=== PATIENT | male | born 1960 | race Caucasian/White ===

== ENCOUNTER 2023-06-16 22:25 | Emergency (ER) | payer BC, SELFPAY ==
--- NOTE | ~2023-06-16 | CT_ITS ---
EXAMINATION: CT HEAD WITHOUT CONTRAST CLINICAL INFORMATION: Right arm paresthesias. Headache. COMPARISON: None available. TECHNIQUE: Contiguous axial imaging was performed from the skull base to vertex without intravenous administration of contrast. This CT examination was performed using dose optimization techniques as appropriate, variously including the following: *Automated exposure control *Adjustment of mA and/or kV according to patient size (this includes techniques or standardized protocols for targeted exams where dose is matched to indication/reason for exam; i.e. extremities or head) *Use of iterative reconstruction technique DLP: 717 mGy-cm FINDINGS: The lateral, third and fourth ventricles are normally outlined. The cortical sulci and basal cisterns are normally outlined as well. There is no acute territorial defect, hemorrhage or midline shift. The extra-axial spaces are unremarkable. Calvarium: Intact. Maxillofacial sinuses and mastoids: There is a small inferior left maxillary sinus opacity. Remaining maxillofacial sinuses and mastoids are clear. CT/CT head/brain wo IV con IMPRESSION: No acute intracranial pathology.
[2023-06-16 22:29] VITALS: BP 150/89; PULSE 90; RESP 18; TEMP 36.6; BMI 31.7
--- NOTE | 2023-06-16 22:48 | ECG_ITS ---
Test Reason : WEAKNESS Blood Pressure : / mmHG Vent. Rate : 094 BPM Atrial Rate : 094 BPM P-R Int : 138 ms QRS Dur : 076 ms QT Int : 372 ms P-R-T Axes : 044 018 018 degrees QTc Int : 465 ms Normal sinus rhythm Normal ECG When compared with ECG of 02-JAN-2018 11:35, Vent. rate has increased BY 34 BPM Referred By: Lety King Electronically Signed By:ARCELIA MOTA
[2023-06-16 22:49] VITALS: BP 180/95; PULSE 94; RESP 17; TEMP 36.9; O2SAT 98
[2023-06-16 22:55] LABS: MANUAL DIFF FLAG NO
[2023-06-16 22:57] LABS: Basophils Percent Auto 0.5 % (0-2); Eosinophils Absolute Auto 0.1 X10*3/uL (0.0-0.4); Eosinophils Percent Auto 1.8 % (0-4); Hematocrit 44.5 % (42.0-52.0); Hemoglobin 15.2 g/dl (14.0-18.0); Imm Gran Abs Auto 0.02 X10*3/uL (0.00-0.03); Imm Gran Pct Auto 0.3 % (0.0-0.4); Lymphocytes Absolute Auto 2.4 X10*3/uL (1.2-4.9); Lymphocytes Percent Auto 38.9 % (20-40); Mean Corpuscular HGB Conc 34.2 g/dl (31.0-36.0); Mean Corpuscular Hemoglobin 30.3 pg (27.0-33.0); Mean Corpuscular Volume 88.8 fL (80.0-98.0); Mean Platelet Volume 9.2 fL (9.4-12.4); Monocytes Absolute Auto 0.7 X10*3/uL (0.1-1.2); Monocytes Percent Auto 11.6 % (2-11); Neutrophils Absolute Auto 2.8 x10*3/uL (2.0-8.3); Neutrophils Percent Auto 46.9 % (45-73); Platelet Count 173 X10*3/uL (160-400); Red Blood Count 5.01 X10*6/uL (4.60-5.80); Red Cell Distribution Width 13.3 % (11.0-16.0)
--- NOTE | 2023-06-16 22:57 | ED.HA ---
HPI - Headache General Chief Complaint: Headache Stated Complaint: headache, 'cant think straight' Time Seen by Provider: 06/16/23 22:37 Source: patient and family Mode of arrival: ambulatory Limitations: no limitations History of Present Illness HPI Narrative: Patient comes to the emergency room accompanied by his . Patient states that since approximately 5 hours ago, patient had a left-sided headache, pain behind his left eye, no visual changes. Patient states that he had a bit of numbness in his right arm. No loss of function, no weakness. Patient reports that he does have history of migraine headaches and anxiety. Patient denies nausea vomiting or diarrhea. No URI or UTI symptoms. Denies chest pain or shortness of breath. Related Data Previous Rx's Medication Instructions Recorded sumatriptan succinate 50 mg tablet See Rx Instructions PO .COMPLEX 06/17/23 #12 tabs Allergies Allergy/AdvReac Type Severity Reaction Status Date / Time broccoli Allergy Intermediate NAUSEA & Verified 06/16/23 22:28 VOMITING Review of Systems Review of Systems: Constitutional : No Weight loss, No Fever, No Chills, No Night Sweats, No Fatigue, No Malaise ENT/Mouth : Complaining of pressure behind his left eye accompanied with a migraine headache, no vision changes, No Hearing loss, No Ear Pain, No Nasal Congestion, No Sinus Pain, No Hoarseness, No sore throat, No Rhinorrhea, No Swallowing Difficulty Eyes: No Eye Pain, No Swelling, No Redness, No Foreign Body, No Discharge, No Vision Changes Cardiovascular : No Chest Pain, No SOB, No Dyspnea on Exertion, No Orthopnea, No Edema, No Palpitations Respiratory : No Cough, No Sputum, No Wheezing, No Smoke Exposure, No Dyspnea Gastrointestinal : No Nausea, No Vomiting, No Diarrhea, No Constipation, No abdominal Pain, No Hematochezia, No Melena Genitourinary : no irregular bleeding, No Dysuria, No Urinary Frequency, No Hematuria, No Urinary Incontinence, No Urgency, No Flank Pain, No Urinary Flow Changes, No Hesitancy Musculoskeletal : No joint pain, No Myalgias, No Joint Swelling Skin : No Skin Lesions, No rash Neuro : No Weakness, No Numbness, complaining of paresthesias in the right arm, No Loss of Consciousness, No Dizziness, complaining of left-sided Headache Psych : No Anxiety/Panic, No Depression, No SI/HI/AH/VH, No Social Issues, Heme/Lymph: No Bruising, No Bleeding,No Lymphadenopathy Endocrine : No Polyuria, No Polydipsia, No Temperature Intolerance [facility] Past Medical History Medical History (Updated 06/17/23 @ 03:58 by Lety King MD) Hypertension Migraine Social History Social History Alcohol intake: current Alcohol intake frequency: a few times a week Alcohol type: beer Smoked in Last 30 Days: No Use of substances other than those prescribed or required for medical reasons: No Advance Directives: No Advance Directives Information Provided: No Physical Exam Vital Signs: Vital Signs: Last Vital Signs Temp 98.1 F 06/17/23 01:08 Pulse 90 06/17/23 01:08 Resp 17 06/17/23 01:08 BP 159/90 H 06/17/23 01:08 Pulse Ox 98 06/17/23 01:08 O2 Del Method Room Air 06/17/23 01:08 BMI result Body Mass Index 31.7 Const: Other: Appearance: Alert. Oriented X3. Anxious, seems uncomfortable from the headache Eyes: Pupils equal, round and reactive to light. ENT: Pharynx normal. Neck: Normal inspection. Neck supple. No lymph nodes noted. No crepitus CVS: Normal heart rate and rhythm. Pulses normal. Normal S1 and S2 Respiratory: No respiratory distress. Breath sounds normal. No Wheezing. No rales Abdomen: Soft and nontender. No rigidity. No distention. Skin: Skin warm and dry. Normal skin color. Normal skin turgor. Extremities: No lower extremity edema. No Lacerations. No Rash Neuro: Oriented X 3. No motor deficit. No sensory deficit. Moving all extremities. No slurred speech. CN 2 through 12 grossly intact Psych: calm, cooperative, anxious NIH Stroke Scale Internal: Initial- Upon Arrival Level of Consciousness: Alert Level of Consciousness Questions: Answers both questions correctly Level of Consciousness Commands: Performs both tasks correctly Best Gaze: Normal Visual: No visual loss Facial Palsy: Normal Motor Arm (Right): No drift Motor Arm (Left): No drift Motor Leg (Right): No drift Motor Leg (Left): No drift Limb Ataxia: Absent Sensory: Normal Best Language: No aphasia Dysarthia: Normal Extinction and Inattention: No abnormality Score: 0 Course Course Course Narrative: -patient receiving IV fluids, cocktail of meds for the migraine headache. -patient's NIH score is 0, patient arrived outside of the window of treatment, either way, patient not a candidate for TNK -symptoms mostly likely secondary to a complex migraine headache -labs and CT scan pending Medications Administered Discontinued Medications Generic Name Dose Route Start Last Admin Trade Name Miriam PRN Reason Stop Dose Admin Acetaminophen/Butalbital/Caffeine 1 tab 06/17/23 02:53 06/17/23 03:01 Butalb/Acetamin/Caff 50/325/40 Tablet PO 06/17/23 02:54 1 tab ONCE ONE Administration Diphenhydramine HCl 25 mg 06/16/23 22:51 06/16/23 23:00 Diphenhydramine Hcl 50 Mg/Ml Vial IVPUSH 06/16/23 22:52 25 mg ONCE ONE Administration Sodium Chloride 1,000 mls @ 999 mls/hr 06/16/23 22:51 06/17/23 00:05 Ns IVCONT 06/16/23 23:51 Infused .Q1H1M ONE Infusion Ketorolac Tromethamine 30 mg 06/16/23 22:51 06/16/23 23:03 Ketorolac Tromethamine 30 Mg/Ml Vial IVPUSH 06/16/23 22:52 30 mg ONCE ONE Administration Metoclopramide HCl 10 mg 06/16/23 22:51 06/16/23 23:05 Metoclopramide Hcl 10 Mg/2 Ml Vial IVPUSH 06/16/23 22:52 10 mg ONCE ONE Administration Morphine Sulfate 4 mg 06/17/23 00:33 06/17/23 00:42 Morphine Sulfate 4 Mg/Ml Cartridge IVPUSH 06/17/23 00:34 4 mg ONCE ONE Administration Protocol Medical Decision Making Medical Decision Making MDM Narrative: -my interpretation of labs: Normal hematology and chemistry, troponin negative, patient's creatinine 1.54, likely secondary to dehydration, patient's alcohol level was slightly positive. patient given IV fluids. Patient will follow-up with his primary care physician. -patient additionally received a dose of Fioricet, patient states that now he feels much better, ready to be discharged home. Patient denies any numbness tingling of the hand -it is unlikely that patient had a TIA/CVA, symptoms most likely secondary to a migraine. - Differential Diagnosis Differential Diagnoses: The differential diagnosis associated with the presentation includes (As above) Lab Data MDM Lab Attestation statement: I reviewed the patient's lab results. 06/16/23 22:51 06/16/23 22:51 Labs: Lab Results 06/16/23 06/16/23 06/17/23 Range/Units 22:42 22:51 01:44 WBC 6.0 (4.8-10.8) X10*3/uL RBC 5.01 (4.60-5.80) X10*6/uL Hgb 15.2 (14.0-18.0) g/dl Hct 44.5 (42.0-52.0) % MCV 88.8 (80.0-98.0) fL MCH 30.3 (27.0-33.0) pg MCHC 34.2 (31.0-36.0) g/dl RDW 13.3 (11.0-16.0) % Plt Count 173 (160-400) X10*3/uL MPV 9.2 L (9.4-12.4) fL Immature Gran % (Auto) 0.3 (0.0-0.4) % Neut % (Auto) 46.9 (45-73) % Lymph % (Auto) 38.9 (20-40) % [place]mort[place] % (Auto) 11.6 H (2-11) % Eos % (Auto) 1.8 (0-4) % Baso % (Auto) 0.5 (0-2) % Lymph # (Auto) 2.4 (1.2-4.9) X10*3/uL [place] # (Auto) 0.7 (0.1-1.2) X10*3/uL Eos # (Auto) 0.1 (0.0-0.4) X10*3/uL Baso # (Auto) 0.0 (0.0-0.2) X10*3/uL Abs Immat Gran (auto) 0.02 (0.00-0.03) X10*3/uL Absolute Neuts (auto) 2.8 (2.0-8.3) x10*3/uL Absolute Nucleated RBC 0.000 (0.0-0.012) X10*3/uL Nucleated RBC % (auto) 0.0 (0.0-0.2) /100WBC PT 11.0 L (11.1-13.3) SEC INR 0.9 (0.9-1.1) Sodium 139 (135-145) mmol/L Potassium 3.7 (3.3-5.1) mmol/L Chloride 103 (96-108) mmol/L Carbon Dioxide 24 (22-29) mmol/L Anion Gap 16 (12-20) BUN 18 H (9-16) mg/dL Creatinine 1.54 H (0.5-1.4) mg/dL Estim Creat Clear Calc 59.7 Estimated GFR 46 POC Glucose 91 (60-115) mg/dL Random Glucose 95 (60-115) mg/dL Calcium 9.1 (8.4-10.2) mg/dL Magnesium 2.1 (1.6-2.6) mg/dL Total Bilirubin 0.4 (0.0-1.0) mg/dL Direct Bilirubin 0.1 (0.0-0.5) mg/dL AST 22 (5-37) U/L ALT 27 (0-40) U/L Alkaline Phosphatase 88 (39-117) U/L Troponin I High Sens < 2.7 (<3.5-35.0) ng/L Total Protein 7.2 (6.5-8.0) g/dL Albumin 4.4 (3.5-5.0) g/dL Urine Color Yellow Urine Appearance Clear Urine pH 5.5 (5.0-9.0) Ur Specific [place] 1.025 (1.005-1.025) Urine Protein Negative (Neg-Trace) mg/dL Urine Glucose (UA) Negative (Negative) mg/dL Urine Ketones 15 (Negative) mg/dL Urine Blood Negative (Negative) Urine Nitrite Negative (Negative) Ur Leukocyte Esterase Negative (Negative) Urine Opiates Screen POSITIVE H (Not Detect) Urine Fentanyl Screen Not Detected (Not Detect) Ur Barbiturates Screen Not Detected (Not Detect) Ur Phencyclidine Scrn Not Detected (Not Detect) Ur Amphetamines Screen Not Detected (Not Detect) U Benzodiazepines Scrn Not Detected (Not Detect) Urine Cocaine Screen Not Detected (Not Detect) U Marijuana (THC) Screen Not Detected (Not Detect) Ethyl Alcohol 29 mg/dL Independent Interpretation I performed an independent interpretation of an: CT Scan Radiology Impression Discussion of test interpretation with radiology: I have reviewed the radiologist's reading. Radiologist Impression: The lateral, third and fourth ventricles are normally outlined. The cortical sulci and basal cisterns are normally outlined as well. There is no acute territorial defect, hemorrhage or midline shift. The extra-axial spaces are unremarkable. Calvarium: Intact. Maxillofacial sinuses and mastoids: There is a small inferior left maxillary sinus opacity. Remaining maxillofacial sinuses and mastoids are clear. CT/CT head/brain wo IV con IMPRESSION: No acute intracranial pathology. Independent Historian Clinical information obtained from an independent historian. History obtained from or confirmed by: Spouse Discharge Plan Discharge Clinical Impression: Migraine Patient Disposition: Home, Self-Care Instructions: Migraine Headache (ED) Additional Instructions: Please follow-up with your primary care physician tomorrow. If you have any worsening or new symptoms, please return to the emergency room or call 911 Prescriptions: New sumatriptan succinate 50 mg tablet See Rx Instructions .ROUTE .COMPLEX Qty: 12 0RF Rx Instructions: take 1 tab at onset of headache; if no relief may repeat 1 tab after at least 2 hrs; max = 4 tabs/24 hr Referrals: Hussain Garg MD [Physician] - 06/18/23
[2023-06-16] MEDS: diphenhydrAMINE HCL 50 MG/ML VIAL 25 MG IVPUSH (23:00)
[2023-06-16 23:01] LABS: INTERNATIONAL NORM RATIO 0.9 (0.9-1.1)
[2023-06-16] MEDS: 0.9 % Sodium Chloride 1,000 ML 999 ML IVCONT (23:01)
[2023-06-16] MEDS: Ketorolac Tromethamine 30 MG/ML VIAL IVPUSH (23:03)
[2023-06-16] MEDS: Metoclopramide HCl 10 MG/2 ML VIAL IVPUSH (23:05)
[2023-06-16 23:11] LABS: Ethanol 29 mg/dL
--- NOTE | 2023-06-16 23:11 | PC.NURSE ---
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 DIONNA, no facial drop noted, no extremity ataxia noted. IV line placed, blood work collected and sent to lab. Meds given per MAY.
[2023-06-16 23:13] LABS: Alanine Aminotransferase 27 U/L (0-40); Albumin Level 4.4 g/dL (3.5-5.0); Alkaline Phosphatase 88 U/L (39-117); Anion Gap 16 (12-20); Aspartate Amino Transferase 22 U/L (5-37); Bilirubin Direct 0.1 mg/dL (0.0-0.5); Bilirubin Total 0.4 mg/dL (0.0-1.0); Blood Urea Nitrogen 18 mg/dL (9-16); Calcium 9.1 mg/dL (8.4-10.2); Carbon Dioxide 24 mmol/L (22-29); Chloride 103 mmol/L (96-108); Creatinine Clr Calc Pharmacy 59.7; Estimated Glomerular Filt Rate 46; Glucose Random 95 mg/dL (60-115); Magnesium 2.1 mg/dL (1.6-2.6); Potassium 3.7 mmol/L (3.3-5.1); Sodium 139 mmol/L (135-145); Total Protein 7.2 g/dL (6.5-8.0)
[2023-06-16 23:21] LABS: Troponin-I High Sensitivity < 2.7 ng/L (<3.5-35.0)
[2023-06-17 00:12] LABS: Glucose, Whole Blood 91 mg/dL (60-115)
[2023-06-17 00:42] VITALS: BP 151/85; PULSE 85; RESP 16; O2SAT 98
[2023-06-17] MEDS: Morphine Sulfate 4 MG/ML CARTRIDGE IVPUSH (00:42)
[2023-06-17 01:08] VITALS: BP 159/90; PULSE 90; RESP 17; TEMP 36.7; O2SAT 98
[2023-06-17 01:52] LABS: Appearance Urine Clear; Color Urine Yellow; Glucose Urine UA Negative (Negative); Leukocyte Esterase Urine Negative (Negative); Nitrite Urine Negative (Negative); PH 5.5 (5.0-9.0); Specific Gravity - Urine 1.025 (1.005-1.025); Urine Blood Negative (Negative); Urine Ketones 15 mg/dL (Negative); Urine Protein Negative (Neg-Trace)
[2023-06-17 02:05] LABS: Amphetamine Screen Urine Not Detected (Not Detect); Barbiturates, Urine Not Detected (Not Detect); Cannabinoid Screen Urine Not Detected (Not Detect); Cocaine Screen Urine Not Detected (Not Detect); Fentanyl, urine Not Detected (Not Detect); Opiate Screen Urine POSITIVE (Not Detect); Phencyclidine Screen Urine Not Detected (Not Detect)
[2023-06-17 02:32] LABS: Benzodiazepines Screen Urine Not Detected (Not Detect)
[2023-06-17] MEDS: Butalb/Acetamin/Caff 50/325/40 TABLET 1 TAB PO (03:01)
[2023-06-17 04:10] VITALS: BP 158/88; PULSE 84; RESP 18; TEMP 36.7; O2SAT 95
== END 2023-06-17 04:15 | disposition home or self-care (01) ==
PROVIDERS: Emergency Provider Emergency Medicine; PCP Family Medicine
DX: G43.909 Migraine, unspecified, not intractable, without status migrainosus (principal); I10 Essential (primary) hypertension
CPT/HCPCS: 36415; 70450; 80048; 80076; 80307; 81003; 82947; 83735; 84484; 85025; 85610; 93005; 96361; 96374; 96375; 99284; 99285; J1200; J1885; J2270; J2765

== ENCOUNTER → 2023-06-16 22:48 | Outpatient (BNV) | payer BC, SELFPAY | PROVIDERS: Emergency Provider Emergency Medicine; PCP Family Medicine; Visit Provider Internal Medicine | DX: R53.1 Weakness (principal) | CPT/HCPCS: 93010 ==